=== PATIENT | male | born 2000 | race Caucasian/White ===

== ENCOUNTER 2019-11-12 12:08 | Outpatient (CLI) | payer BC, SELFPAY ==
--- NOTE | 2019-11-12 12:24 | DI.RAD_ITS ---
EXAM: XR CHEST 2V PA LATERAL CLINICAL HISTORY: COUGH, R05. TECHNIQUE: 2D digital imaging was performed. COMPARISON: No exams were available for comparison FINDINGS: LUNGS: Clear. No pleural abnormality seen. HEART: Normal. MEDIASTINUM: Normal. OTHER FINDINGS:Normal. IMPRESSION: No acute pulmonary findings.
== END 2019-11-12 12:28 ==
PROVIDERS: PCP Family Medicine; Visit Provider Nurse Practitioner Family
DX: R05 Cough (principal)
CPT/HCPCS: 71046